=== PATIENT | female | born 1940 | race Caucasian/White ===

== ENCOUNTER 2018-05-07 18:56 | Emergency (ER) | payer MEDICARE ==
[~2018-05-07] VITALS: Ht 162.6 cm; Wt 79.4 kg
--- NOTE | 2018-05-07 19:08 | NUR ---
PT BIB FROM HOME FOR RUE PAIN L FOREHEAD ABRASION; PT AAOX4, PT ON MONITOR, VSS, NAD NOTED, PENDING ER PROVIDER EVAL
[2018-05-07] MEDS ORDERED: MORPHINE SULFATE INJ 2 MG/ML DISP.SYRIN ONE (19:26)
[2018-05-07] MEDS ORDERED: MORPHINE SULFATE INJ 4 MG/ML DISP.SYRIN ONE ×2 (19:27→20:46)
[2018-05-07] MEDS ORDERED: MORPHINE SULFATE INJ 2 MG/ML DISP.SYRIN IM ONE (19:30)
[2018-05-07 20:28] VITALS: BP 158/74
[2018-05-07] MEDS ORDERED: MORPHINE SULFATE INJ 2 MG/ML DISP.SYRIN IV ONE (21:00)
--- NOTE | 2018-05-07 21:45 | NUR ---
Patient discharged to home in stable condition. Written and verbal after care instructions given. Patient verbalizes understanding of instruction. IV removed. Catheter intact and site benign. Pressure and 4x4 applied to site. No bleeding noted.
== END 2018-05-07 21:46 | disposition home or self-care (01) ==
LOC: ER 19:03
DX: S52.091A Other fracture of upper end of right ulna, initial encounter for closed fracture (principal); S52.134A Nondisplaced fracture of neck of right radius, initial encounter for closed fracture; S52.124A Nondisplaced fracture of head of right radius, initial encounter for closed fracture; S00.83XA Contusion of other part of head, initial encounter; E11.9 Type 2 diabetes mellitus without complications; I10 Essential (primary) hypertension; Z86.73 Personal history of transient ischemic attack (TIA), and cerebral infarction without residual deficits; Z85.3 Personal history of malignant neoplasm of breast; Z88.2 Allergy status to sulfonamides; Z88.1 Allergy status to other antibiotic agents; W18.09XA Striking against other object with subsequent fall, initial encounter; Y93.89 Activity, other specified; Y92.89 Other specified places as the place of occurrence of the external cause; Y99.8 Other external cause status
CPT/HCPCS: 29105; 70450; 73080; 73090; 73110; 96372; 96374; 99284; J2270 ×3